=== PATIENT | male | born 1975 | race Caucasian/White ===

== ENCOUNTER → 2017-03-16 | Outpatient (CLI) | payer OTHER | END | disposition home or self-care (01) | LOC: LAB.O 07:02 | PROVIDERS: ATTEND Family Medicine | DX: D50.9 Iron deficiency anemia, unspecified (principal); Z01.812 Encounter for preprocedural laboratory examination; Z01.818 Encounter for other preprocedural examination; I10 Essential (primary) hypertension; Z85.048 Personal history of other malignant neoplasm of rectum, rectosigmoid junction, and anus ==

== ENCOUNTER → 2017-09-13 | Outpatient (CLI) | payer OTHER ==
--- NOTE | 2017-09-13 09:47 | CT ---
EXAM DESCRIPTION: Abdomen/Pelvis w/wo Contrast: Computed Tomography. CLINICAL HISTORY: RESTAGING OF RECTAL CANCER COMPARISON: CT abdomen with and without contrast 01/22/2009. TECHNIQUE: Spiral-axial scans at 5.0 mm intervals through the abdomen and pelvis before and after standard dose nonionic IV contrast. Also water-soluble oral contrast, prior to scans. Coronal and sagittal 2.0 mm reconstructions. No delayed scans. No adverse reactions. Total Exam DLP 2534.27 mGy - cm. This exam was performed according to our departmental CT dose-optimization program which includes automated exposure control, adjustment of the mA and/or kV according to patient size and/or use of iterative reconstruction technique; to reduce radiation dose to as low as reasonably achievable (ALARA). FINDINGS: Lung bases and pleura: Minimal dependent atelectasis posterior right lung base. Liver, Stomach, Spleen, Adrenal Glands: Stomach unremarkable. Solid organs are negative. Pancreas, Gallbladder, Ducts: Gallbladder visualized. Duct and pancreas negative. Normal surrounding fat. Kidneys and Ureters: Negative. Mesentery: No free air or free fluid. No fatty stranding or fascial thickening. Aorta: Normal caliber. Surgical sutures terminating the proximal RAQUEL. No enlarged periaortic or pericaval nodes. Small Bowel: Oral contrast distal jejunum and ileum. No abnormal thickening or abnormal surrounding fat. No obstruction. Terminal Ileum/Cecum: Normal caliber TI and cecum which contain oral contrast. Normal caliber of the appendix containing gas. Normal surrounding fat. Colon: No oral contrast, mostly fecal material throughout redundancy of the splenic flexure. Sutures indicating anastomosis of the rectum posterior to the prostate gland. Posterior margin of the prostate gland mostly ill-defined and fatty interface with the surgical site not well defined. Suture ring appears intact. Pelvic Organs: Please see above. Prostate gland abutting the base of the urinary bladder and the seminal vesicles. Fatty interface between the anterior prostate gland and the urinary bladder is mostly present. Also the interface between the urinary bladder osorio and the pelvic sidewalls is well-defined. No enlarged nodes in the bilateral external and internal iliac chains. No definite obturator node enlargement. Spine and Bony Pelvis: Minimal bulging L4-5 and L5-S1 discs posterior. Minimal narrowing bilateral L5-S1 foramina. No sclerotic or destructive bone lesions. Abdominal Wall/Back Soft Tissues: Surgical changes anterior to the left right inferior rectus muscle in the subcutaneous adipose tissue. Minimal adipose density abutting the umbilicus. IMPRESSION: At the anastomotic site in the rectum posterior to the prostate gland. Lack of fatty interfaces between the surgical site and the posterior prostate gland as well as decreased definition of the posterior margins of the prostate gland extending to the adjacent muscle layer. No definite fluid. No enlarged lymph nodes in the pelvis. These could represent postsurgical changes, depending on duration since the surgery. No remote enlarged lymph nodes or mass lesions in the solid organs of the abdomen and pelvis. If there is clinical concern for recurrent rectal tumor and invasion of the posterior prostate gland, consider follow-up MRI scan of the pelvis without and with gadolinium IV contrast.. Electronically signed by: Rafa Kwan MD 09/13/2017 9:46 AM [facility]
== END ==
LOC: CT 07:51
PROVIDERS: ATTEND Internal Medicine Hematology & Oncology
DX: C20 Malignant neoplasm of rectum (principal); Z51.0 Encounter for antineoplastic radiation therapy

== ENCOUNTER → 2017-10-05 | Outpatient (CLI) | payer OTHER | LOC: GMA 14:35 | PROVIDERS: ATTEND Physician Assistant | DX: R30.0 Dysuria (principal); I10 Essential (primary) hypertension; Z12.5 Encounter for screening for malignant neoplasm of prostate | CPT/HCPCS: 84439; 84443; 87086; G0103 ==

== ENCOUNTER → 2017-10-07 | Outpatient (CLI) | payer OTHER ==
--- NOTE | 2017-10-07 16:10 | MRI ---
EXAM DESCRIPTION: Thoracic Spine w/o Contrast: Computed Tomography. CLINICAL HISTORY: RADICULOPATHY, THORACIC REGION COMPARISON: None Available. TECHNIQUE: High field 4.0 mm scans through the thoracicspine without contrast. Sagittal 3.0 mm Reconstructions. FINDINGS: T6-7 disc is desiccated. Posterior midline 4 mm protrusion impressing on the ventral thoracic cord. The disc may be extruding above the disc space. Canal narrowing but no stenosis. Bilateral foramina are patent. Facets and posterior ligaments are unremarkable. No definite nerve impingement. T8-9 disc is desiccated. Posterior broad-based 6 mm protrusion of the disc to the left of midline impressing on the cord. There is also extrusion of the disc above and below the disc space. The disc may be encroaching on the exiting right T8 nerve. No other significantly bulging or herniated discs. No canal or foraminal stenosis. No cord compression at any level. No abnormal marrow signal in the vertebral bodies and the posterior elements. No compression type vertebral body fractures. No significant spondylolisthesis. IMPRESSION: Posterior midline T6-7 disc protrusion impressing on the ventral sac. Possible extrusion. Left posterior eccentric herniation of the T8-9. With possible impingement of the left T8 nerve. Extrusion of the disc. Electronically signed by: Rafa Kwan MD 10/07/2017 4:08 PM CDT
== END ==
LOC: MRI 06:26
PROVIDERS: ATTEND Physician Assistant
DX: M51.14 Intervertebral disc disorders with radiculopathy, thoracic region (principal)

== ENCOUNTER → 2018-03-17 | Outpatient (CLI) | payer BC | LOC: GMAM 10:23 | PROVIDERS: ATTEND Family Medicine | DX: C20 Malignant neoplasm of rectum (principal) ==

== ENCOUNTER → 2018-03-22 | Outpatient (CLI) | payer BC | LOC: GMAM 10:48 | PROVIDERS: ATTEND Family Medicine | DX: K76.0 Fatty (change of) liver, not elsewhere classified (principal) ==

== ENCOUNTER → 2018-03-30 | Outpatient (CLI) | payer BC ==
--- NOTE | 2018-03-30 09:41 | CT ---
EXAM DESCRIPTION: Abdomen w/Contrast: Computed Tomography. CLINICAL HISTORY: RECTAL CANCER COMPARISON: CT abdomen and pelvis 09/13/2017. TECHNIQUE: Spiral-axial scans at 5 x 5 mm intervals through the abdomen, after nonionic IV contrast. Gastrografin oral contrast. Coronal and sagittal 2.0 mm reconstructions. Delayed 5 x 5 mm scans, liver to the upper pelvis. No adverse reactions. Total Exam DLP: 2302.47 mGy-cm. This exam was performed according to our departmental CT dose-optimization program which includes automated exposure control, adjustment of the mA and/or kV according to patient size and/or use of iterative reconstruction technique; to reduce radiation dose to as low as reasonably achievable (ALARA). FINDINGS: Lung bases and pleura: 4.3 mm nodule with central calcification in the inferior lingula abutting the left major fissure is stable. Liver, Stomach, Spleen, Adrenal Glands: Slight rotation of the liver with gallbladder fossa rotated anteriorly. No focal lesions in the liver. Stomach contains minimal oral contrast; other solid organs are negative. Pancreas, Gallbladder, Ducts: Gallbladder in the gallbladder fossa. Pancreas and ducts are negative. Kidneys: Unremarkable. Mesentery: No free air or free fluid. No fatty stranding or fascial thickening. Aorta: Negative. Small Bowel: Unremarkable. Terminal Ileum/Cecum: Negative. Appendix normal caliber. No fatty stranding. Colon: Unremarkable with no obstruction. Oral contrast only reached the hepatic flexure. Spine: Minimal spondylosis lower thoracic spine. L5-S1 bilateral foraminal narrowing. Abdominal Wall/Back Soft Tissues: Surgical or percutaneous scar to the right of midline at the level of the mid pelvis. IMPRESSION: No focal hepatic lesions. Normal contrast enhancement. No organomegaly. No masses in the peritoneum or retroperitoneum. No free fluid or free air. Included organs are unremarkable. Electronically signed by: Rafa Kwan MD 03/30/2018 9:39 AM CDT
== END ==
LOC: CT 07:36
PROVIDERS: ATTEND Family Medicine
DX: C20 Malignant neoplasm of rectum (principal)

== ENCOUNTER 2018-05-08 16:49 | Emergency (ER) | payer BC ==
[2018-05-08 17:08] VITALS: TEMP 96.9
[2018-05-08] MEDS ORDERED: SODIUM CHLORIDE 0.9% 1000ML 1,000 ML IVS ONE (17:12)
[2018-05-08] MEDS ORDERED: ONDANSETRON ODT 8 MG TAB SL ONE (17:13)
[2018-05-08] MEDS ORDERED: MORPHINE SULFATE INJ 10 MG/ML VIAL IV ONE (17:37)
--- NOTE | 2018-05-08 17:40 | RAD ---
EXAM DESCRIPTION: Abdomen Series CLINICAL HISTORY: 43 years, Male, acute ruq pain, hx bowel resection 1 yr ago COMPARISON: CT scan of the abdomen with contrast dated 03/30/2018. FINDINGS: Two x-ray views the abdomen and one x-ray view of the chest were performed the second with an acute abdominal series. The lungs are moderately expanded and clear. The RIGHT hemidiaphragm is elevated. The costophrenic sulci are sharp. The cardiac silhouette, hilar regions, trachea, soft tissues and bony structures are unremarkable. No pneumoperitoneum is present. No gaseous distention of the bowel. Bowel sutures project over the expected location of the rectum and proximal ascending colon. Overall small to moderate amount of colonic stool with the majority in the proximal colon. No gaseous distention of bowel. No suspicious air-fluid level. IMPRESSION: Postoperative changes. No evidence of bowel obstruction. No acute cardiopulmonary disease. Elevated RIGHT hemidiaphragm. Electronically signed by: Ivelisse Sparks MD 05/08/2018 5:39 PM CDT
[2018-05-08] MEDS ORDERED: SUCRALFATE 1 GM/10 ML 1 GM UD PO ONE (18:18)
[2018-05-08] MEDS ORDERED: CIPROFLOXACIN 500 MG TAB PO ONE (18:18)
--- NOTE | 2018-05-08 18:33 | ED.PDOC ---
History of Present Illness - General Chief Complaint: Abdominal Pain Stated Complaint: RUQ pain Time Seen by Provider: 05/08/18 16:52 Source: patient Exam Limitations: no limitations - History of Present Illness Initial Comments: the patient is a 43-year-old male presenting to the emergency room secondary to fairly acute onset right upper quadrant pain about an hour to 2 hours prior to arrival. No vomiting but he did have nausea. He was feeling fine before that. He had a CT scan about a month ago that was essentially negative. He does have a history of having had colon cancer with resection and what is believed to be definitive treatment around the year ago. Vital signs are stable. He does have right upper quadrant discomfort palpation but no definite rebound or peritoneal signs. He has had increasing reflux issues over the last couple of weeks as well. He has taken Prilosec long-term. Timing/Duration: 1-3 hours Severity: moderate Improving Factors: nothing Worsening Factors: nothing Associated Symptoms: loss of appetite, nausea/vomiting Allergies/Adverse Reactions: Allergies Meperidine Allergy (Verified 05/08/18 17:08) Home Medications: Ambulatory Orders Amlodipine Besylate [Norvasc] 2.5 mg PO DAILY 05/08/18 Ciprofloxacin [Cipro] 500 mg PO BID #14 tab 05/08/18 Esomeprazole Magnesium [Nexium] 40 mg PO DAILY 05/08/18 Losartan Potassium 50 mg PO DAILY 05/08/18 Ondansetron [Zofran Odt] 4 mg PO Q4H PRN #10 tab 05/08/18 Sucralfate Tab [Carafate Tab] 1 gm PO QID #60 tab 05/08/18 Venlafaxine HCl 37.5 mg PO DAILY 05/08/18 Review of Systems - Review of Systems Constitutional: States: no symptoms reported EENTM: States: no symptoms reported Cardiology: States: no symptoms reported Gastrointestinal/Abdominal: States: see HPI Genitourinary: States: no symptoms reported Musculoskeletal: States: no symptoms reported Skin: States: no symptoms reported Neurological: States: no symptoms reported Endocrine: States: no symptoms reported All other Systems: No Change from Baseline Past Medical History (General) - Patient Medical History Hx Stroke: No Hx Congestive Heart Failure: No Hx Hypertension: Yes Hx Diabetes: No Hx Gastroesophageal Reflux: Yes Hx Cancer: Yes - Colon Surgical History: tonsillectomy - Vaccination History Hx Influenza Vaccination: No - Social History Hx Tobacco Use: Yes Family Medical History - Family History Father Family History: Unknown Living Status: Unknown Physical Exam - Physical Exam General Appearance: Alert, No apparent distress Eye Exam: bilateral normal Ears, Nose, Throat: hearing grossly normal, normal ENT inspection, normal pharynx Neck: non-tender, full range of motion, supple Respiratory: lungs clear, normal breath sounds, no respiratory distress, no accessory muscle use Cardiovascular/Chest: normal peripheral pulses, regular rate, rhythm, no edema Peripheral Pulses: radial,right: 2+, radial,left: 2+, dorsalis pedis,right: 2+, dorsalis pedis,left: 2+ Gastrointestinal/Abdominal: soft, other - see history of present illness. Scars from previous surgeries are noted. 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 X-ray and laboratory work are reassuring. It is possible that this may simply be biliary colic. He has received a liter of IV fluids as well as some mild nausea medications and mild pain medications. He is feeling better. He does need to keep himself well hydrated and avoid large fatty meals for the next few days. We are additionally going to cover for his chronic gastritis with Carafate for the next few weeks. Given his complicated history, we will cover for the possibility of a very early cholecystitis with 7 days of oral ciprofloxacin. I would recommend that he take a probiotic for the next 2- 3 weeks in the form of lactobacillus or VSL3 to prevent additional longer term intestinal upset from the antibiotic. He needs to follow up with his primary care doctor in 2 or 3 days for repeat evaluation. If he does have any significant worsening then blood work will need to be repeated and additional imaging obtained. ER warnings are given for any worsening. - Results/Orders Results/Orders: Laboratory Results - last 24 hr 05/08/18 05/08/18 05/08/18 17:22 17:22 17:22 WBC 4.8 RBC 5.07 Hgb 15.2 Hct 45.3 MCV 89.4 MCH 30.0 MCHC 33.5 RDW 13.4 Plt Count 249 MPV 7.1 L Absolute Neuts (auto) 3.00 Absolute Lymphs (auto) 1.00 Absolute Monos (auto) 0.60 Absolute Eos (auto) 0.20 Absolute Basos (auto) 0.00 Neutrophils % 61.7 Lymphocytes % 20.7 Monocytes % 11.7 H Eosinophils % 5.2 H Basophils % 0.7 Sodium 141 Potassium 3.8 Chloride 105 Carbon Dioxide 27 Anion Gap 12.8 BUN 12 Creatinine 0.76 BUN/Creatinine Ratio 15.8 Random Glucose 83 Serum Osmolality 280.2 Lactic Acid Calcium 9.7 Total Bilirubin 1.1 H AST 22 ALT 25 Alkaline Phosphatase 41 L Serum Total Protein 7.6 Albumin 4.6 Globulin 3.0 Albumin/Globulin Ratio 1.5 Amylase 35 Lipase 32 Urine Color Urine Appearance Urine pH Ur Specific [place] Urine Protein Urine Glucose (UA) Urine Ketones Urine Blood Urine Nitrite Urine Bilirubin Urine Urobilinogen Ur Leukocyte Esterase Urine RBC Urine WBC Ur Epithelial Cells Urine Bacteria 05/08/18 05/08/18 17:22 17:39 WBC RBC Hgb Hct MCV MCH MCHC RDW Plt Count MPV Absolute Neuts (auto) Absolute Lymphs (auto) Absolute Monos (auto) Absolute Eos (auto) Absolute Basos (auto) Neutrophils % Lymphocytes % Monocytes % Eosinophils % Basophils % Sodium Potassium Chloride Carbon Dioxide Anion Gap BUN Creatinine BUN/Creatinine Ratio Random Glucose Serum Osmolality Lactic Acid 1.2 Calcium Total Bilirubin AST ALT Alkaline Phosphatase Serum Total Protein Albumin Globulin Albumin/Globulin Ratio Amylase Lipase Urine Color Yellow Urine Appearance Clear Urine pH 7.0 Ur Specific [place] 1.015 Urine Protein Negative Urine Glucose (UA) Negative Urine Ketones Negative Urine Blood Trace-intact H Urine Nitrite Negative Urine Bilirubin Negative Urine Urobilinogen 0.2 Ur Leukocyte Esterase Negative Urine RBC 0-1 Urine WBC 0 Ur Epithelial Cells 0 Urine Bacteria 0 acute abdominal series shows no definitive new pathology. Departure - Departure Clinical Impression: Abdominal pain Qualifiers: Abdominal location: right upper quadrant Qualified Code(s): R10.11 - Right upper quadrant pain Disposition: Discharge to Home or Self Care Condition: Fair Departure Forms: ED Discharge - Pt. Copy, Patient Portal Self Enrollment Diet: regular diet Activity: increase activity as tolerated Referrals: Venkat Chino MD [Primary Care Provider] - 1-2 Weeks Prescriptions: Ciprofloxacin [Cipro] 500 mg PO BID #14 tab Ondansetron [Zofran Odt] 4 mg PO Q4H PRN #10 tab PRN Reason: Vomiting Sucralfate Tab [Carafate Tab] 1 gm PO QID #60 tab Home Medications: Ambulatory Orders Amlodipine Besylate [Norvasc] 2.5 mg PO DAILY 05/08/18 Ciprofloxacin [Cipro] 500 mg PO BID #14 tab 05/08/18 Esomeprazole Magnesium [Nexium] 40 mg PO DAILY 05/08/18 Losartan Potassium 50 mg PO DAILY 05/08/18 Ondansetron [Zofran Odt] 4 mg PO Q4H PRN #10 tab 05/08/18 Sucralfate Tab [Carafate Tab] 1 gm PO QID #60 tab 05/08/18 Venlafaxine HCl 37.5 mg PO DAILY 05/08/18 Additional Instructions: the patient a 43-year-old male presenting with acute onset right upper quadrant pain. X-ray and laboratory work are reassuring. It is possible that this may simply be biliary colic. He has received a liter of IV fluids as well as some mild nausea medications and mild pain medications. He is feeling better. He does need to keep himself well hydrated and avoid large fatty meals for the next few days. We are additionally going to cover for his chronic gastritis with Carafate for the next few weeks. Given his complicated history, we will cover for the possibility of a very early cholecystitis with 7 days of oral ciprofloxacin. I would recommend that he take a probiotic for the next 2- 3 weeks in the form of lactobacillus or VSL3 to prevent additional longer term intestinal upset from the antibiotic. He needs to follow up with his primary care doctor in 2 or 3 days for repeat evaluation. If he does have any significant worsening then blood work will need to be repeated and additional imaging obtained. ER warnings are given for any worsening.
[2018-05-08 19:00] VITALS: BP 130/84; O2SAT 99
== END 2018-05-08 18:59 | disposition home or self-care (01) ==
LOC: ER 16:49
DX: R10.11 Right upper quadrant pain (principal); I10 Essential (primary) hypertension; K21.9 Gastro-esophageal reflux disease without esophagitis; Z85.038 Personal history of other malignant neoplasm of large intestine; Z87.891 Personal history of nicotine dependence; Z79.899 Other long term (current) drug therapy; Z88.8 Allergy status to other drugs, medicaments and biological substances
CPT/HCPCS: 36415; 74019; 80053; 81001; 82150; 83605; 83690; 85025; J2270; J7030

== ENCOUNTER → 2018-05-16 | Outpatient (CLI) | payer BC ==
--- NOTE | 2018-05-16 14:50 | US ---
EXAM DESCRIPTION: Gall Bladder: ULTRASOUND. CLINICAL HISTORY: RUQ PAIN COMPARISON: CT abdomen and pelvis 03/30/2018. Abdominal radiographs 05/08/2018. TECHNIQUE: Transabdominal scanning: Reece-scale and Doppler modes. FINDINGS: Gallbladder: Multiple echogenic stones which are mobile with patient change in position. Collecting in the dependent portion of the gallbladder. Largest measures 8.1 mm diameter. No fluid around the gallbladder. No wall thickening. 1.9 mm. Non-tender with transducer pressure. Common bile duct: caliber 4.8 mm within normal limits. Liver: Increased echogenicity; contour liver capsule smooth where seen. No fluid around the liver. Intrahepatic biliary ducts normal caliber. Doppler hepatopedal flow portal vein.. Normal caliber 8.2 mm. Long axis right lobe 14.8 cm. Pancreas: normal size and echogenicity. Duct not seen. Right kidney: 11.2 cm long axis. Normal cortical thickness and echogenicity. No hydronephrosis or perinephric fluid. IMPRESSION: 1. Multiple mobile gallstones in the gallbladder with no wall thickening, no fluid, and no tenderness. Normal caliber of the common bile duct. 2. Minimal steatosis of the liver with normal size. Normal vascularity and ducts. Smooth capsule with no ascites. Electronically signed by: Rafa Kwan MD 05/16/2018 2:48 PM CDT
== END ==
LOC: US 08:03
PROVIDERS: ATTEND Family Medicine
DX: K80.20 Calculus of gallbladder without cholecystitis without obstruction (principal); K76.0 Fatty (change of) liver, not elsewhere classified

== ENCOUNTER 2018-05-29 21:42 | Emergency (ER) | payer BC ==
[2018-05-29] MEDS ORDERED: TETANUS,DIPHTHERIA,PERTUSSIS 1 EA SYG IM ONE (22:30)
--- NOTE | 2018-05-29 22:33 | ED.PDOC ---
History of Present Illness - General Chief Complaint: Laceration Stated Complaint: laceration little finger Time Seen by Provider: 05/29/18 22:28 Source: patient Exam Limitations: no limitations - History of Present Illness Initial Comments: Damon Garduno 43 y/o male stated he was cutting potatoes with meat james and accidentally cut left little finger with sharp pain and bleeding after incident. Timing/Duration: 1-3 hours Severity: mild Improving Factors: nothing Worsening Factors: movement Associated Symptoms: other - see hpi Allergies/Adverse Reactions: Allergies Meperidine Allergy (Verified 05/08/18 17:08) Home Medications: Ambulatory Orders Amlodipine Besylate [Norvasc] 2.5 mg PO DAILY 05/08/18 Ciprofloxacin [Cipro] 500 mg PO BID #14 tab 05/08/18 Esomeprazole Magnesium [Nexium] 40 mg PO DAILY 05/08/18 Losartan Potassium 50 mg PO DAILY 05/08/18 Ondansetron [Zofran Odt] 4 mg PO Q4H PRN #10 tab 05/08/18 Sucralfate Tab [Carafate Tab] 1 gm PO QID #60 tab 05/08/18 Venlafaxine HCl 37.5 mg PO DAILY 05/08/18 Acetaminophen W/ Codeine [Tylenol w/Codeine 300-30 mg] 1 tab PO TID PRN #14 tab 05/29/18 Cephalexin 1,000 mg PO BID 5 Days #20 cap 05/29/18 Review of Systems - Review of Systems Constitutional: States: no symptoms reported EENTM: States: no symptoms reported Respiratory: States: no symptoms reported Cardiology: States: no symptoms reported Gastrointestinal/Abdominal: States: no symptoms reported Genitourinary: States: no symptoms reported Skin: States: see HPI Past Medical History (General) - Patient Medical History Hx Stroke: No Hx Congestive Heart Failure: No Hx Hypertension: Yes Hx Diabetes: No Hx Gastroesophageal Reflux: Yes Hx Cancer: Yes - Colon-remission Surgical History: cholecystectomy, other - anterior resection colon - Vaccination History Hx Influenza Vaccination: No - Social History Hx Tobacco Use: Yes Hx Physical Abuse: No Hx Emotional Abuse: No Family Medical History - Family History Father Family History: Unknown Living Status: Unknown Hx Family Cancer: Yes - colon-grandparent Physical Exam - Physical Exam General Appearance: Alert, Comfortable, No apparent distress Eye Exam: bilateral normal Ears, Nose, Throat: hearing grossly normal, normal ENT inspection Neck: non-tender, full range of motion, supple Respiratory: chest non-tender, lungs clear, normal breath sounds Cardiovascular/Chest: normal peripheral pulses, regular rate, rhythm, no murmur Peripheral Pulses: radial,right: 2+, radial,left: 2+ Gastrointestinal/Abdominal: non tender, soft, no organomegaly Back Exam: no CVA tenderness, no vertebral tenderness Extremity: no pedal edema, no calf tenderness, other - left little finger- partial nail and nailbed avulsion little finger Neurologic: no motor/sensory deficits, alert, oriented x 3 Progress - EKG/XRAY/CT XRAY: finger left little-no fracure or FB Departure - Departure Clinical Impression: Partial avulsion of fingernail Qualifiers: Encounter type: initial encounter Qualified Code(s): S61.309A - Unspecified open wound of unspecified finger with damage to nail, initial encounter Time of Disposition: 23:30 Disposition: Discharge to Home or Self Care Departure Forms: ED Discharge - Pt. Copy, Patient Portal Self Enrollment Instructions: DI for Avulsion Laceration (Not Requiring Sutures) Referrals: Venkat Chino MD [Primary Care Provider] - 1-2 Weeks Prescriptions: Acetaminophen W/ Codeine [Tylenol w/Codeine 300-30 mg] 1 tab PO TID PRN #14 tab PRN Reason: Pain Cephalexin 1,000 mg PO BID 5 Days #20 cap Home Medications: Ambulatory Orders Amlodipine Besylate [Norvasc] 2.5 mg PO DAILY 05/08/18 Ciprofloxacin [Cipro] 500 mg PO BID #14 tab 05/08/18 Esomeprazole Magnesium [Nexium] 40 mg PO DAILY 05/08/18 Losartan Potassium 50 mg PO DAILY 05/08/18 Ondansetron [Zofran Odt] 4 mg PO Q4H PRN #10 tab 05/08/18 Sucralfate Tab [Carafate Tab] 1 gm PO QID #60 tab 05/08/18 Venlafaxine HCl 37.5 mg PO DAILY 05/08/18 Acetaminophen W/ Codeine [Tylenol w/Codeine 300-30 mg] 1 tab PO TID PRN #14 tab 05/29/18 Cephalexin 1,000 mg PO BID 5 Days #20 cap 05/29/18 Additional Instructions: Removal of wound dressing 01 June 2108 May use waterproof band aid available over the counter ;Follow up with primary Md 07 jun 2018 for wound recheck
--- NOTE | 2018-05-29 22:57 | RAD ---
EXAM DESCRIPTION: Fingers,Left CLINICAL HISTORY: 43 years Male, injury COMPARISON: None. FINDINGS: Three views of the left fifth digit. No evidence for an acute fracture. No dislocation. Bandage overlying the distal left fifth digit demonstrated mildly limiting the study. No obvious radiopaque foreign body. IMPRESSION: No obvious acute fracture. No radiopaque foreign body. Electronically signed by: Joe Batista MD 05/29/2018 10:56 PM COMPLIANCE COUNSEL
[2018-05-29] MEDS ORDERED: CEPHALEXIN MONOHYDRATE 500 MG CAP PO ONE (23:28)
[2018-05-29] MEDS ORDERED: HYDROCOD/APAP 7.5/325 (ER DISP) #3 TAB PO ONE (23:29)
[2018-05-29 23:33] VITALS: O2SAT 98
[2018-05-29 23:53] VITALS: BP 118/78; TEMP 98.4
== END 2018-05-29 23:53 | disposition home or self-care (01) ==
LOC: ER 21:42
DX: S61.317A Laceration without foreign body of left little finger with damage to nail, initial encounter (principal); W26.0XXA Contact with knife, initial encounter; I10 Essential (primary) hypertension; Z85.038 Personal history of other malignant neoplasm of large intestine; Z79.899 Other long term (current) drug therapy; Z88.8 Allergy status to other drugs, medicaments and biological substances; Y93.G1 Activity, food preparation and clean up; Y92.9 Unspecified place or not applicable; Z23 Encounter for immunization

== ENCOUNTER → 2018-10-17 | Outpatient (CLI) | payer BC | LOC: GMAM 13:15 | PROVIDERS: ATTEND Family Medicine | DX: E29.1 Testicular hypofunction (principal); Z12.5 Encounter for screening for malignant neoplasm of prostate ==

== ENCOUNTER → 2019-02-14 | Outpatient (CLI) | payer BC | LOC: LAB.O 15:02 | PROVIDERS: ATTEND Internal Medicine Hematology & Oncology | DX: C20 Malignant neoplasm of rectum (principal) ==

== ENCOUNTER → 2019-08-21 | Outpatient (CLI) | payer BC | LOC: GMAM 10:51 | PROVIDERS: ATTEND Family Medicine | DX: C20 Malignant neoplasm of rectum (principal) ==

== ENCOUNTER → 2019-10-02 | Outpatient (CLI) | payer BC | DX: C20 Malignant neoplasm of rectum (principal); J84.10 Pulmonary fibrosis, unspecified; K76.0 Fatty (change of) liver, not elsewhere classified ==

== ENCOUNTER → 2019-12-28 | Outpatient (CLI) | payer BC | LOC: GMAM 10:44 | PROVIDERS: ATTEND Family Medicine | DX: Z00.00 Encounter for general adult medical examination without abnormal findings (principal) ==

== ENCOUNTER → 2020-02-13 | Outpatient (CLI) | payer BC | LOC: GMAM 16:57 | PROVIDERS: ATTEND Family Medicine | DX: C20 Malignant neoplasm of rectum (principal) ==

== ENCOUNTER → 2020-06-18 | Outpatient (CLI) | payer BC | LOC: GMAM 10:53 | PROVIDERS: ATTEND Family Medicine | DX: C20 Malignant neoplasm of rectum (principal); I10 Essential (primary) hypertension; E29.1 Testicular hypofunction ==

== ENCOUNTER → 2020-06-27 | Outpatient (CLI) | payer BC ==
--- NOTE | 2020-06-28 09:24 | US ---
EXAM: Liver INDICATION: 45 years Male, ABNORMAL LIVER FUNCTION STUDIES. Reported history of colon cancer status post radiation and chemotherapy. COMPARISON: CT abdomen pelvis with contrast 10/02/2019, right upper quadrant ultrasound 05/16/2018 TECHNIQUE: Limited abdominal ultrasound was performed. FINDINGS: Diffusely increased echogenicity of the hepatic parenchyma is suggestive of steatosis. No definite focal hepatic lesion is identified, although visualization of the liver parenchyma is limited on this examination. Liver size is within normal limits at approximately 10.8 cm. No intrahepatic biliary ductal dilatation. Hepatopedal flow in the main portal vein. The gallbladder is surgically absent. The common bile duct is within normal limits at approximately 5 mm. No cholelithiasis. No pericholecystic fluid. Unremarkable appearance of the visualized portions of the pancreas, although much is obscured due to overlying bowel gas. The right kidney measures 11.0 x 6.7 x 6.6 cm. Normal renal cortical echogenicity. No stones are identified. No hydronephrosis. Unremarkable appearance of the visualized portions of the abdominal aorta and inferior vena cava. No ascites. IMPRESSION: 1. Findings suggestive of hepatic steatosis. No definite focal hepatic lesion is identified, although much of the liver is poorly visualized on this examination. 2. Cholecystectomy. Electronically signed by: Gracie Foote MD 06/28/2020 9:22 AM [employer]
== END ==
LOC: US 09:06
PROVIDERS: ATTEND Family Medicine
DX: K76.9 Liver disease, unspecified (principal); Z90.49 Acquired absence of other specified parts of digestive tract; R94.5 Abnormal results of liver function studies

== ENCOUNTER → 2020-08-12 | Outpatient (CLI) | payer BC ==
--- NOTE | 2020-08-12 12:09 | RAD ---
Study: Three views of the Right Ankle. Indication: PAIN OF RIGHT ANKLE JOINT Comparison: None Impression: Calcaneal spurring at the Achilles tendon insertion and plantar fascia origin. No acute fracture, malalignment, or advanced osteoarthritis. Electronically signed by: Eris Nunez MD 08/12/2020 12:07 PM [facility]
== END ==
LOC: RAD 07:50
PROVIDERS: ATTEND Orthopaedic Surgery
DX: M25.571 Pain in right ankle and joints of right foot (principal); M77.31 Calcaneal spur, right foot